=== PATIENT | female | born 1965 | race Caucasian/White ===

== ENCOUNTER 2021-09-10 19:08 | Emergency (ER) | payer OTHER, SELFPAY ==
[~2021-09-10] VITALS: Ht 162.6 cm; Wt 59.0 kg
[2021-09-10 19:10] VITALS: BP_SYST 138
--- NOTE | 2021-09-10 19:10 | NUR ---
BROUGHT IN BY [facility] AND PLACED IN BED #5 AND TRIAGED. REPORT GIVEN TO PROFESSOR OF ENGLISH ER CHARGE NURSE
--- NOTE | 2021-09-10 19:31 | NUR ---
Report received from Olivia Patel RN for continuation of care
--- NOTE | 2021-09-10 19:50 | NUR ---
Pt kazakh speaking. Pt awake a/o x4. speech clear and coherent. c/o neck and upper chest pain /10 x1 day. also c/o trouble taking a deep breath. pt speaks in full sentences. chest expansion symmetrical. respirations even and unlabored. awaiting for MD fournier. will continue to monitor.
--- NOTE | 2021-09-10 19:59 | NUR ---
Dr Roberto at bedside for eval
[2021-09-10] MEDS ORDERED: ASPIRIN 325 MG TABLET PO ONE (20:15)
--- NOTE | 2021-09-10 20:34 | NUR ---
xray at bedside
[2021-09-10 21:09] LABS: BASOPHILS % (AUTO) 0.7 % (0.0-2.0); EOSINOPHILS # (AUTO) 0.1 K/uL (0.0-0.4); EOSINOPHILS % (AUTO) 1.4 % (0.0-4.0); HEMOGLOBIN 13.6 g/dL (12.0-16.0); LYMPHOCYTES # (AUTO) 1.5 K/uL (1.0-5.5); LYMPHOCYTES % (AUTO) 29.8 % (20.5-51.5); MEAN CORPUSCULAR HEMOGLOBIN 28 pg (27-31); MEAN CORPUSCULAR HGB CONC 33 % (32-36); MEAN CORPUSCULAR VOLUME 85 fL (79.0-98.0); MONOCYTES # (AUTO) 0.3 K/uL (0.0-1.0); MONOCYTES % (AUTO) 6.2 % (1.7-9.3); NEUTROPHILS # (AUTO) 3.2 K/uL (1.8-7.7); NEUTROPHILS % (AUTO) 61.9 % (40.0-70.0); PLATELET COUNT (AUTO) 243 K/uL (130-430); RED BLOOD CELL COUNT(AUTO) 4.83 MIL/uL (4.2-6.2); RED CELL DISTRIBUTION WIDTH 12.9 % (9.0-15.0); WHITE BLOOD COUNT (AUTO) 5.1 K/uL (4.8-10.8)
[2021-09-10 21:24] LABS: CALCIUM 8.7 mg/dL (8.4-11.0); CREATININE 0.53 mg/dL (0.55-1.30); POTASSIUM 3.5 mmol/L (3.5-5.1)
[2021-09-10 21:33] LABS: ALBUMIN 3.7 g/dL (3.4-4.8); TOTAL BILIRUBIN 0.5 mg/dL (0.0-1.0)
--- NOTE | 2021-09-10 22:55 | NUR ---
Pt discharged. Pt awake a/o x4. aci reviewed with pt, verbalized understanding. to follow up with pmd within the next 2-3 days or return to ed if condition worsens. vs stable. work note provided. ambulatory with steady gait unassisted. nad.
[2021-09-10 22:56] VITALS: BP_SYST 120
== END 2021-09-10 22:55 | disposition home or self-care (01) ==
LOC: SED 19:08
DX: M54.2 Cervicalgia (principal); M25.512 Pain in left shoulder; R07.89 Other chest pain; F43.0 Acute stress reaction; Z20.822 Contact with and (suspected) exposure to COVID-19
CPT/HCPCS: 36415; 71045; 80053; 84484; 85025; 93005; 99285